=== PATIENT | female | born 1945 | race Caucasian/White ===

== ENCOUNTER → 2018-07-31 11:41 | Outpatient (CLI) | payer MEDICARE, OTHER, SELFPAY ==
--- NOTE | 2018-07-31 | DI.CT.S_ITS ---
PROCEDURE: CT UE LT WO CON INDICATIONS: CLOSED FRACTURE OF HEAD OF LEFT HUMERUS TECHNIQUE: Noncontrast 1-1.5 mm thick sections acquired from the acromioclavicular joint to the inferior scapula, with coronal and sagittal reformatting. COMPARISON: [facility], CR, XR SHOULDER 2+ VIEWS LEFT, 07/31/2018, 10:17. [facility], CR, XR SHOULDER 2+ VIEWS LEFT, 07/21/2018, 9:29. [facility], CR, XR HUMERUS LEFT, 07/20/2018, 16:22. [facility], CR, XR SHOULDER 2+ VIEWS LEFT, 07/20/2018, 16:22. FINDINGS: Image quality: Diagnostic. Bones: There is a highly comminuted fracture involving the left humeral head that demonstrates avulsion of the greater and lesser tuberosities. There is mild impaction of the distal fracture fragment and corresponding to anterior displacement of the distal fracture fragment with respect to the articular surface of the humeral head. No dislocation of the articular surface is identified. No additional fractures are seen. A small intra-articular joint bodies are evident within the glenohumeral joint. No suspicious osseous lesions are present. There mild to moderate degenerative changes of the glenohumeral and acromial clavicular joints. Soft tissues: There is a prominent glenohumeral joint effusion. Moderate edema about the left shoulder is identified. No soft tissue masses or drainable fluid collections are evident. The included left lung is unremarkable. IMPRESSION: Comminuted proximal humerus fracture is compatible with at least a 3 part Neer fracture. Dictated by: Harlan Feliciano M.D. on 07/31/2018 at 11:44 Approved by: Harlan Feliciano M.D. on 07/31/2018 at 11:46
== END ==
PROVIDERS: Visit Provider Physician Assistant
DX: S42.292A Other displaced fracture of upper end of left humerus, initial encounter for closed fracture (principal)
CPT/HCPCS: 73200

== ENCOUNTER → 2018-11-20 18:06 | Outpatient (REF) | payer MEDICARE, OTHER, SELFPAY | LOC: LAB 18:06 | DX: J32.4 Chronic pansinusitis (principal) | CPT/HCPCS: 87070; 87075; 87107; 87147; 87205 ==

== ENCOUNTER → 2022-03-15 15:52 | Outpatient (CLI) | payer MEDICARE, SELFPAY ==
--- NOTE | 2022-03-15 15:58 | DI.RAD.S_ITS ---
PROCEDURE: XR CHEST 2V INDICATIONS: fall TECHNIQUE: 2 views of the chest were acquired. COMPARISON: None. FINDINGS: Surgical changes and devices: Lower cervical fusion hardware. Thoracolumbar fusion hardware. Lungs and pleura: Lungs are clear. No pleural effusions or pneumothorax. Mediastinum: Mediastinal contours are normal. Heart size is normal. Bones and chest wall: No suspicious bony abnormalities. Soft tissues appear unremarkable. IMPRESSION: No acute process. Dictated by: Devon Gonzalez M.D. on 03/15/2022 at 16:29 Approved by: Devon Gonzalez M.D. on 03/15/2022 at 16:37
--- NOTE | 2022-03-15 15:58 | DI.RAD.S_ITS ---
PROCEDURE: XR RIBS RT 2V INDICATIONS: fall TECHNIQUE: 2 views of the left ribs were acquired. COMPARISON: None. FINDINGS: Surgical changes and devices: Thoracolumbar fusion hardware. Lower cervical fusion hardware. Bones and chest wall: No acute fractures or dislocations. Chronic appearing deformity of the left humeral head. No suspicious bony lesions. Overlying soft tissues appear unremarkable. Lungs and pleura: The visualized lung appears clear. No pleural effusions or pneumothorax are visible. IMPRESSION: 1. No acute fracture. No osseous lesion. If symptoms and/or clinical suspicion for pathology persist, further assessment with repeat, or advanced imaging (e.g., CT or bone scan) may be helpful for further assessment. Dictated by: Devon Gonzalez M.D. on 03/15/2022 at 16:28 Approved by: Devon Gonzalez M.D. on 03/15/2022 at 16:37
== END ==
PROVIDERS: PCP Internal Medicine; Referring Provider Internal Medicine; Visit Provider Internal Medicine
DX: R29.6 Repeated falls (principal); W19.XXXA Unspecified fall, initial encounter
CPT/HCPCS: 71046; 71100

== ENCOUNTER → 2022-05-08 12:55 | Outpatient (CLI) | payer MEDICARE, SELFPAY ==
--- NOTE | 2022-05-08 | DI.RAD.S_ITS ---
PROCEDURE: XR LUMBAR SPINE 2-3V INDICATIONS: Arthrodesis status TECHNIQUE: 3 views of the lumbar spine were acquired. COMPARISON: [facility], CT, CT ANGIO CHEST, 02/17/2021, 14:11. Outside Film, CT, CT CHEST WITHOUT CONTRAST, 12/04/2018, 13:04. FINDINGS: Bones: Large posterior juana and screw construct extends from T10 through S1. T10 T9-10 disc space. Prostate periprosthetic loosening is noted round the right pedicle screw. Remainder of the instrumentation is in good good position without evidence of hardware failure. Interbody fusion at L1-2, L2-3, L3-4 and L5-S1 is noted with anterior low-profile plate and screw instrumentation at L5-S1. Generalized osseous mineralization present. Posterolateral fusion mass noted extending from L4 to the sacrum. Soft tissues: Overlying bowel gas pattern is normal. No suspicious soft tissue calcifications. IMPRESSION: 1. No evidence of hardware failure. Right T10 pedicle screw shows Maura prostatic lucency probably reflecting hardware loosening. Right pedicle screw extends into the T9-10 disc space as well. Consider follow-up thoracolumbar CT for further evaluation. Approved by: Jordin Wilson M.D. on 05/08/2022 at 17:21
== END ==
PROVIDERS: PCP Internal Medicine; Referring Provider Physician Assistant; Visit Provider Physician Assistant
DX: Z09 Encounter for follow-up examination after completed treatment for conditions other than malignant neoplasm (principal); Z98.1 Arthrodesis status
CPT/HCPCS: 72100

== ENCOUNTER → 2023-03-07 13:28 | Outpatient (CLI) | payer MEDICARE, SELFPAY ==
--- NOTE | 2023-03-07 | DI.CT.S_ITS ---
PROCEDURE: CT LE LT W CON INDICATIONS: Post-traumatic osteoarthritis, left ankle and foot TECHNIQUE: Noncontrast 1-1.5 mm axial sections acquired from above the tibiotalar joint to the bottom of the calcaneus, with coronal and sagittal reformats. COMPARISON: [facility], CR, XR ANKLE 3+ VIEWS RIGHT, 01/08/2023, 13:34. [facility], CR, XR ANKLE 3 VIEWS WEIGHT BEARING LEFT, 02/27/2023, 17:37. FINDINGS: Image quality: Diagnostic. Significant beam hardening artifacts from surgical hardware are seen.. Bones: Patient is status post internal fixation of distal fibular shaft and medial malleolus with long surgical screws extending through distal tibial fibular syndesmosis. Significant beam hardening artifacts are noted from surgical hardware. No definite hardware loosening or failure is seen. Alignment of left ankle and foot is anatomic. Nearly healed or healed distal fibular shaft and medial malleolus fractures are seen. No acute fracture or dislocation. Moderate to severe tibiotalar joint osteoarthritic changes are seen with significant joint space narrowing, subchondral sclerosis and marginal osteophyte formation. Moderate osteoarthritic changes are noted throughout rest of the left foot. Well-defined plantar and dorsal calcaneal enthesophytes are seen. Soft tissues: There is moderate joint effusion, no gross calcified intra-articular loose bodies. No abnormal soft tissue calcifications. Distal Achilles tendon is thickened at its posterior calcaneal insertion. No full-thickness ankle tendon rupture. The visualized plantar fascia is within normal limits. IMPRESSION: 1. Post ORIF changes in left ankle with healed or nearly healed trimalleolar fracture. No evidence of hardware loosening or failure. No acute fracture or dislocation. 2. 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 Underlying osteochondral injuries of talar dome cannot be excluded. 3. [id number] osteoarthritic changes throughout rest of the left foot. Well-defined plantar and dorsal calcaneal enthesophytes. 4. Small to moderate tibiotalar joint effusion, no gross calcified intra-articular loose bodies. Distal Achilles tendinosis at its posterior calcaneal insertion. No full-thickness tendon rupture. Dictated by: Zenon Iqbal M.D. on 03/07/2023 at 14:04 Approved by: Zenon Iqbal M.D. on 03/07/2023 at 14:09
== END ==
PROVIDERS: PCP Internal Medicine; Referring Provider Orthopaedic Surgery Foot and Ankle Surgery; Visit Provider Orthopaedic Surgery Foot and Ankle Surgery
DX: M19.172 Post-traumatic osteoarthritis, left ankle and foot (principal); Z98.890 Other specified postprocedural states; M77.8 Other enthesopathies, not elsewhere classified; M25.472 Effusion, left ankle; M77.32 Calcaneal spur, left foot
CPT/HCPCS: 73700

== ENCOUNTER 2023-06-04 13:53 | Emergency (ER) | payer MEDICARE, SELFPAY ==
[2023-06-04] VITALS (11 sets, daily range): BP systolic 139–196; BP diastolic 63–105; PULSE 54–72; RESP 13–27; TEMP 36.6; O2SAT 94–100; BMI 34.7
--- NOTE | 2023-06-04 14:18 | DI.RAD.S_ITS ---
PROCEDURE: XR CHEST 1V INDICATIONS: chest pain TECHNIQUE: One view of the chest was acquired. COMPARISON: [facility], CR, XR CHEST 2V, 03/15/2022, 15:50. FINDINGS: Surgical changes and devices: None. Lungs and pleura: Lungs are clear. No pleural effusions or pneumothorax. Mediastinum: Mediastinal contours appear normal. Heart size is normal. Bones and chest wall: No suspicious bony lesions. Overlying soft tissues appear unremarkable. IMPRESSION: No acute cardiopulmonary process. Dictated by: Ted Hubbard M.D. on 06/04/2023 at 16:11 Approved by: Ted Hubbard M.D. on 06/04/2023 at 16:11
[2023-06-04] MEDS: SODIUM CHLORIDE 0.9% 1,000 ML 1000 ML IV (14:24)
[2023-06-04 14:37] LABS: Add Manual Diff / Slide Review NO; Basophils Absolute Auto 100 /uL (0-100); Basophils Percent Auto 1.1 % (0-2); D Dimer 1423 ng/ml (<500); Eosinophils Absolute Auto 400 /uL (0-450); Hematocrit 35.2 % (36-46); Hemoglobin 11.6 g/dL (12.0-16.0); Lymphocytes Absolute Auto 2200 /uL (1100-4500); Lymphocytes Percent Auto 34.6 % (25-40); Mean Corpuscular HGB Conc 32.9 % (30-36); Mean Corpuscular Hemoglobin 28.3 PG (26-34); Mean Corpuscular Volume 86.2 fL (80-100); Monocytes Absolute Auto 700 /uL (0-900); Monocytes Percent Auto 10.3 % (3-14); Neutrophils Absolute Auto 3100 /uL (1500-7000); Platelet Count 181 X10^3/uL (150-400); Red Blood Cell Count 4.09 X10^6/uL (4.0-5.2); Red Cell Distribution Width 15.4 % (11.6-14.8); White Blood Cell Count 6.4 X10^3/uL (4.5-11.0)
[2023-06-04 14:40] LABS: Alanine Aminotransferase 22 IU/L (<35); Albumin 4.2 g/dL (3.5-5.0); Albumin Globulin Ratio 1.3 (1.0-2.8); Alkaline Phosphatase 80 U/L (38-126); Aspartate Aminotransferase 36 IU/L (14-36); BUN Creatinine Ratio 20.2 (6-22); Bilirubin Total 0.5 mg/dL (0.2-1.3); Blood Urea Nitrogen 22 mg/dL (7-17); Calcium 9.7 mg/dL (8.4-10.2); Carbon Dioxide 29 mmol/L (22-32); Chloride 100 mmol/L (98-107); Creatine Kinase 54 U/L (30-135); Estimated Glomerular Filt Rate 52 mL/min (>60); Globulin 3.3 g/dL (1.7-4.1); Glucose 128 mg/dL (80-110); HEMOLYSIS 17 (0-50); Lactate (Lactic Acid) 1.8 mmol/L (0.7-2.1); Lipase 88 U/L (23-300); Potassium 3.9 mmol/L (3.4-5.1); Sodium 139 mmol/L (137-145); Total Protein 7.5 g/dL (6.3-8.2)
[2023-06-04 14:51] LABS: Troponin I < 0.012 ng/mL (0.01-0.034)
[2023-06-04 14:54] LABS: NT-proBNP (BNP-Adult 18+) 227 pg/mL (<450)
--- NOTE | 2023-06-04 16:16 | ED_ITS ---
HPI - Neuro Symptoms/Deficit General Chief Complaint: Neuro Symptoms/Deficit Stated Complaint: decreased LOC Time Seen by Provider: 06/04/23 14:19 Source: patient and EMS Mode of arrival: EMS History of Present Illness HPI Narrative: Patient is a 77-year-old female history of asthma, probable GLORIA, hypothyroid presents today with near syncopal episode. She lives with her son whom is a family physician and reports that she went up the stairs and got dizzy and lightheaded. She is able to sit down within pass out briefly while sitting. He reports that she has done this couple times in the past it is usually due to dehydration. Patient did not hit her head brief loss of consciousness she is not on any anticoagulation medication. No numbness tingling or weakness. She reports having some increasing shortness of breath over last couple days infectious having some shortness of breath with walking up the stairs. No real chest pain. She says that she did not eat or drink anything today. She has not had fever increased confusion she seems to be back to her normal self. On Anticoagulants: No Related Data Allergies Allergy/AdvReac Type Severity Reaction Status Date / Time adhesive tape Allergy Rash Verified 06/04/23 14:22 gatifloxacin [From Tequin] Allergy Rash Verified 06/04/23 14:22 tizanidine Allergy Hypotension Verified 06/04/23 14:22 gabapentin AdvReac Confusion Verified 06/04/23 14:22 morphine AdvReac Irritable Verified 06/04/23 14:22 Review of Systems Review of Systems ROS Unobtainable: All systems reviewed & are unremarkable except as noted in HPI and below Hematologic/Lymphatic On Anticoagulants: No Patient History Social History Smoking Status: Former smoker Smoking Status: Former smoker alcohol intake frequency: 0-2 drinks per day Alcohol type: hard liquor Substance Use Type: does not use Exam Initial Vital Signs Initial Vital Signs: Vital Signs Pulse Rate 60 06/04/23 14:03 Blood Pressure 139/63 06/04/23 14:03 Pulse Oximetry 100 06/04/23 14:03 GENERAL: Alert pleasant 77-year-old female and in [no acute] distress. HEENT: Head atraumatic,EOMI, pupils reactive, face symmetric, [moist] mucous membranes CARDIOVASCULAR: Regular rate and rhythm without murmurs, rubs or gallops. RESPIRATORY: Breath sounds equal bilaterally, no wheezes rales or rhonchi. ABDOMEN: Soft, nontender. Normoactive bowel sounds all 4 quadrants. No guarding or rebound. EXTREMITIES: Normal range of motion, no clubbing or edema. Neurovascularly intact NEUROLOGICAL: Alert and oriented x4.Normal gait and speech. Cranial nerves 2-12 Preschool Director strength equal bilaterally moving lower extremities SKIN: Warm, dry, no laceration, no petechiae, no rashes or lesions. Course Orders Ordered: ED Orders 06/04/23 13:50 Complete Blood Count AUTO DIFF Stat Comprehensive Metabolic Panel Stat D Dimer Stat Lactate (Lactic Acid) Stat Lipase Stat NT-proBNP (BNP-Adult 18+) Stat Troponin & CK Cardiac Panel Stat 06/04/23 14:18 XR chest 1V Stat 06/04/23 16:14 EKG-12 Lead Stat 06/04/23 16:39 CT angio chest PE protocol Stat Discontinued Medications Sodium Chloride (Normal Saline 0.9%) 1,000 mls @ 1,000 mls/hr IV CONT HCANNING Last Infusion: 06/04/23 15:50 Dose: 0 mls/hr Documented By: Admin: 06/04/23 14:24 Dose: 1,000 mls/hr Documented By: LONG Vital Signs Vital signs: Vital Signs - 8 hr 06/04/23 14:08 06/04/23 14:03 06/04/23 14:03 Temperature 97.9 F Pulse Rate 63 60 Respiratory Rate 22 Blood Pressure 139/63 139/63 Pulse Oximetry 100 100 Oxygen Delivery Method Room Air 06/04/23 14:30 06/04/23 14:30 06/04/23 15:00 Temperature Pulse Rate 54 L Respiratory Rate 21 Blood Pressure 142/63 H 151/74 H Pulse Oximetry 98 Oxygen Delivery Method Room Air 06/04/23 15:00 06/04/23 15:30 06/04/23 15:30 Temperature Pulse Rate 57 L 59 L Respiratory Rate 16 18 Blood Pressure 142/75 H Pulse Oximetry 98 95 Oxygen Delivery Method Room Air 06/04/23 16:00 06/04/23 16:01 06/04/23 16:01 Temperature Pulse Rate 60 59 L Respiratory Rate 14 21 Blood Pressure 160/72 H Pulse Oximetry 97 96 Oxygen Delivery Method 06/04/23 16:30 06/04/23 16:30 06/04/23 17:06 Temperature Pulse Rate 60 Respiratory Rate 13 Blood Pressure 175/81 H 196/89 H Pulse Oximetry 98 Oxygen Delivery Method 06/04/23 17:06 06/04/23 17:30 06/04/23 17:48 Temperature Pulse Rate 65 72 70 Respiratory Rate 27 H 26 H Blood Pressure Pulse Oximetry 94 97 98 Oxygen Delivery Method 06/04/23 17:48 Temperature Pulse Rate Respiratory Rate Blood Pressure 174/105 H Pulse Oximetry Oxygen Delivery Method MDM - Neuro Symptoms/Deficit Lab Data 06/04/23 13:50 06/04/23 13:50 Labs: Lab Results 06/04/23 06/04/23 06/04/23 Range/Units 13:50 13:50 13:50 WBC 6.4 (4.5-11.0) X10^3/uL RBC 4.09 (4.0-5.2) X10^6/uL Hgb 11.6 L (12.0-16.0) g/dL Hct 35.2 L (36-46) % MCV 86.2 (80-100) fL MCH 28.3 (26-34) PG MCHC 32.9 (30-36) % RDW 15.4 H (11.6-14.8) % Plt Count 181 (150-400) X10^3/uL Neut % (Auto) 48.0 L (50-75) % Lymph % (Auto) 34.6 (25-40) % Sullivan % (Auto) 10.3 (3-14) % Eos % (Auto) 6.0 H (2-4) % Baso % (Auto) 1.1 (0-2) % Neut # (Auto) 3100 (8938-0762) /uL Lymph # (Auto) 2200 (7881-8025) /uL Sullivan # (Auto) 700 (0-900) /uL Eos # (Auto) 400 (0-450) /uL Baso # (Auto) 100 (0-100) /uL D-Dimer 1423 H (<500) ng/ml Sodium 139 (137-145) mmol/L Potassium 3.9 (3.4-5.1) mmol/L Chloride 100 (98-107) mmol/L Carbon Dioxide 29 (22-32) mmol/L BUN 22 H (7-17) mg/dL Creatinine 1.09 H (0.52-1.04) mg/dL Estimated GFR 52 L (>60) mL/min BUN/Creatinine Ratio 20.2 (6-22) Glucose 128 H (80-110) mg/dL Lactate (0.7-2.1) mmol/L Calcium 9.7 (8.4-10.2) mg/dL Total Bilirubin 0.5 (0.2-1.3) mg/dL AST 36 (14-36) IU/L ALT 22 (<35) IU/L Alkaline Phosphatase 80 (38-126) U/L Total Creatine Kinase 54 (30-135) U/L Troponin I < 0.012 (0.01-0.034) ng/mL NT-Pro-B Natriuret Pep (<450) pg/mL Total Protein 7.5 (6.3-8.2) g/dL Albumin 4.2 (3.5-5.0) g/dL Globulin 3.3 (1.7-4.1) g/dL Albumin/Globulin Ratio 1.3 (1.0-2.8) Lipase 88 (23-300) U/L 06/04/23 06/04/23 Range/Units 13:50 13:50 WBC (4.5-11.0) X10^3/uL RBC (4.0-5.2) X10^6/uL Hgb (12.0-16.0) g/dL Hct (36-46) % MCV (80-100) fL MCH (26-34) PG MCHC (30-36) % RDW (11.6-14.8) % Plt Count (150-400) X10^3/uL Neut % (Auto) (50-75) % Lymph % (Auto) (25-40) % Sullivan % (Auto) (3-14) % Eos % (Auto) (2-4) % Baso % (Auto) (0-2) % Neut # (Auto) (6486-8005) /uL Lymph # (Auto) (5414-7089) /uL Sullivan # (Auto) (0-900) /uL Eos # (Auto) (0-450) /uL Baso # (Auto) (0-100) /uL D-Dimer (<500) ng/ml Sodium (137-145) mmol/L Potassium (3.4-5.1) mmol/L Chloride (98-107) mmol/L Carbon Dioxide (22-32) mmol/L BUN (7-17) mg/dL Creatinine (0.52-1.04) mg/dL Estimated GFR (>60) mL/min BUN/Creatinine Ratio (6-22) Glucose (80-110) mg/dL Lactate 1.8 (0.7-2.1) mmol/L Calcium (8.4-10.2) mg/dL Total Bilirubin (0.2-1.3) mg/dL AST (14-36) IU/L ALT (<35) IU/L Alkaline Phosphatase (38-126) U/L Total Creatine Kinase (30-135) U/L Troponin I (0.01-0.034) ng/mL NT-Pro-B Natriuret Pep 227 (<450) pg/mL Total Protein (6.3-8.2) g/dL Albumin (3.5-5.0) g/dL Globulin (1.7-4.1) g/dL Albumin/Globulin Ratio (1.0-2.8) Lipase (23-300) U/L Imaging Data Chest x-ray: Radiologist's Impression: PROCEDURE:? XR CHEST 1V ? INDICATIONS:? chest pain ? TECHNIQUE:? One view of the chest was acquired.? ? COMPARISON:? [facility], , XR CHEST 2V, 03/15/2022, 15:50. ? FINDINGS:? ? Surgical changes and devices:? None.? ? Lungs and pleura:? Lungs are clear.? No pleural effusions or pneumothorax.? ? Mediastinum:? Mediastinal contours appear normal.? Heart size is normal.? ? Bones and chest wall:? No suspicious bony lesions.? Overlying soft tissues appear unremarkable.? ? IMPRESSION:? No acute cardiopulmonary process. ? ? ? Dictated by: Ted Hubbard M.D. on 06/04/2023 at 16:11 ? ? Approved by: Ted Hubbard M.D. on 06/04/2023 at 16:11? CT scan - chest: Radiologist's Impression: PROCEDURE:? CT ANGIO CHEST PE PROTOCOL ? INDICATIONS:? high dimer and sob ? TECHNIQUE:? After the administration of intravenous contrast, 2 mm thick sections acquired from the pulmonary apices to the posterior costophrenic angles.? 3-dimensional maximum intensity projection (MIP) coronal and sagittal reformats were then acquired through the thorax.? For radiation dose reduction, the following was used:? automated exposure control, adjustment of mA and/or kV according to patient size.? ? COMPARISON:? [facility], CT, CT CHEST WITHOUT CONTRAST, 11/25/2022, 14:50. ? FINDINGS:? Image quality:? Excellent.? ? Pulmonary arteries:? Pulmonary arteries are normal in size, and demonstrate no intraluminal filling defects to suggest central pulmonary embolism.? ? Lungs and pleura:? Lungs are clear.? No pleural effusions or pneumothorax.? Central and peripheral airways are patent. ? Mediastinum:? Heart size is normal, without pericardial effusion.? Mild left anterior descending calcifications.? No mediastinal or hilar adenopathy.? Thoracic aorta is normal in caliber and enhancement.? Atherosclerotic vascular calcifications.? Esophagus is normal in caliber.? Moderate hiatal hernia.? ? Bones and chest wall:? No suspicious bony lesions.? C7-T1 ACDF.? T10 through T12 posterior spinal fusion.? Multilevel degenerative changes of the thoracic spine.? Ribs and thoracic spine appear intact throughout.? Visualized portions of the thyroid gland are within normal limits.? No axillary or supraclavicular adenopathy.? ? Abdomen:? Visualized upper abdominal solid organs appear normal in the early arterial phase of enhancement.? ? IMPRESSION:? ? 1. No evidence of pulmonary embolism. 2. No pulmonary consolidations or suspicious nodules.? No pleural effusion or pneumothorax. 3. Moderate hiatal hernia. ? ? Dictated by: Freedom Almaraz M.D. on 06/04/2023 at 17:02 ? ? Approved by: Freedom Almaraz M.D. on 06/04/2023 at 17:08 ? ECG Data Interpretation: Sinus bradycardia rate 57 OH interval 222 QRS [address] changes no priors to compare MDM Narrative Medical decision making narrative: Patient is 77-year-old female presents today with increasing shortness of breath with exertion in your syncopal episode. She has done this previously when she is dehydrated. She had no focal deficits no shaking or seizure-like activity. Lab work has been reviewed she is no leukocytosis or anemia. Electrolytes are within normal limits she is a creatinine today of 1.0 negative troponin. However she does have an elevated D-dimer of 1400. CT angio chest was done for increasing shortness of breath and syncope it ruled out for pulmonary embolism. Patient is back to her normal self. She had a L of fluids he is eating and drinking in the ED. Feels ready and able to go home. Likely had near syncopal episode from mild dehydration and not eating. Discharge Plan Departure Patient Disposition: Home Clinical Impression: Near syncope Instructions: DI for Syncope in Adults (Fainting) Activity Restrictions/Additional Instructions: *You have been diagnosed with near syncope *What to do: Please stay cool stay hydrated and eat regularly. *Continue to take medications as directed *Follow up with your primary care provider in 2-3 days or call [phone] *Return to ER if you should have recurrent episode dizziness lightheadedness chest pain worsening shortness of breath or any new, worsening or concerning symptoms Referrals: Jeffrey Pena MD [Primary Care Provider] - Stand Alone Forms: Patient Portal/API
--- NOTE | 2023-06-04 16:39 | DI.CT.S_ITS ---
PROCEDURE: CT ANGIO CHEST PE PROTOCOL INDICATIONS: high dimer and sob TECHNIQUE: After the administration of intravenous contrast, 2 mm thick sections acquired from the pulmonary apices to the posterior costophrenic angles. 3-dimensional maximum intensity projection (MIP) coronal and sagittal reformats were then acquired through the thorax. For radiation dose reduction, the following was used: automated exposure control, adjustment of mA and/or kV according to patient size. COMPARISON: [facility], CT, CT CHEST WITHOUT CONTRAST, 11/25/2022, 14:50. FINDINGS: Image quality: Excellent. Pulmonary arteries: Pulmonary arteries are normal in size, and demonstrate no intraluminal filling defects to suggest central pulmonary embolism. Lungs and pleura: Lungs are clear. No pleural effusions or pneumothorax. Central and peripheral airways are patent. Mediastinum: Heart size is normal, without pericardial effusion. Mild left anterior descending calcifications. No mediastinal or hilar adenopathy. Thoracic aorta is normal in caliber and enhancement. Atherosclerotic vascular calcifications. Esophagus is normal in caliber. Moderate hiatal hernia. Bones and chest wall: No suspicious bony lesions. C7-T1 ACDF. T10 through T12 posterior spinal fusion. Multilevel degenerative changes of the thoracic spine. Ribs and thoracic spine appear intact throughout. Visualized portions of the thyroid gland are within normal limits. No axillary or supraclavicular adenopathy. Abdomen: Visualized upper abdominal solid organs appear normal in the early arterial phase of enhancement. IMPRESSION: 1. No evidence of pulmonary embolism. 2. No pulmonary consolidations or suspicious nodules. No pleural effusion or pneumothorax. 3. Moderate hiatal hernia. Dictated by: Freedom Almaraz M.D. on 06/04/2023 at 17:02 Approved by: Freedom Almaraz M.D. on 06/04/2023 at 17:08
== END 2023-06-04 17:56 | disposition home or self-care (01) ==
PROVIDERS: Emergency Provider Emergency Medicine; PCP Internal Medicine
DX: R55 Syncope and collapse (principal); R07.9 Chest pain, unspecified; R42 Dizziness and giddiness; Z79.899 Other long term (current) drug therapy
CPT/HCPCS: 71045; 71275; 80053; 82550; 83605; 83690; 83880; 84484; 85025; 85379; 93005; 96360; 99283; 99284; Q9967

== ENCOUNTER → 2024-06-04 13:51 | Outpatient (CLI) | payer MEDICARE, SELFPAY | PROVIDERS: PCP Internal Medicine | DX: Z79.891 Long term (current) use of opiate analgesic (principal) | CPT/HCPCS: 80307; 80326; 80331; 80334; 80337; 80338; 80341; 80344; 80347; 80348; 80353; 80354; 80355; 80357; 80358; 80359; 80360; 80361; 80364; 80365; 80366; 80367; 80368; 80370; 80371; 80372; 80373; 80377; 83992; G0480 ==